=== PATIENT | female | born 1940 | race African-American/Black ===

== ENCOUNTER 2018-03-17 15:07 | Inpatient (IN) | payer MEDICARE ==
[~2018-03-17] VITALS: Ht 175.3 cm; Wt 99.0 kg
[2018-03-17] MEDS ORDERED: TRAMADOL 50MG TABLET PO ONE (17:15)
[2018-03-17] MEDS ORDERED: CLONIDINE 0.1MG TABLET PO ONE ×2 (17:15→19:30)
[2018-03-17] MEDS ORDERED: MORPHINE SULFATE 4 MG/ML CPJ (NOT FOR IM USE) IV ONE (19:30)
[2018-03-17] MEDS ORDERED: ONDANSETRON HCL 4MG/2ML INJ IV ONE (19:30)
[2018-03-17] MEDS ORDERED: HYDROCODONE/ACETAMINOPHEN 5/325MG TABLET PO PRN (20:15)
[2018-03-17] MEDS ORDERED: HYDROCODONE/ACETAMINOPHEN 10/325MG TABLET PO PRN (20:15)
[2018-03-17] MEDS ORDERED: DEXTROSE 50% WATER 50ML SYRINGE IV PRN (20:15)
[2018-03-17] MEDS ORDERED: ONDANSETRON HCL 4MG/2ML INJ IV PRN (20:15)
[2018-03-17 20:56] LABS: HEMOGLOBIN. 12.3 g/dL (12.0-16.0); MEAN CORPUSCULAR HEMOGLOBIN 28.9 pg (28.0-32.0); MEAN PLATELET VOLUME 8.2 fl (7.4-10.4); PLATELET 246 x1000/uL (130-400); RED BLOOD CELL COUNT 4.25 mill/uL (4.2-5.4); RED CELL DISTRIBUTION WIDTH 13.8 % (11.6-14.6)
[2018-03-17] MEDS: BLOOD SUGAR DIAGNOSTIC STRIP TEST SCH (21:00)
[2018-03-17 21:06] LABS: CHLORIDE 104 mEq/L (98-107)
[2018-03-17 21:12] LABS: PLATELET ESTIMATE NORMAL
[2018-03-18] VITALS (7 sets, daily range): BP systolic 122–179; BP diastolic 40–76
[2018-03-18] MEDS: AMLODIPINE 10MG TABLET PO SCH (02:28)
[2018-03-18] MEDS: INSULIN LISPRO 100 UNITS/ML SUBCUT SCH ×5 (02:30→22:19)
[2018-03-18] MEDS ORDERED: INSU100I28 SQ (06:27)
[2018-03-18] MEDS ORDERED: BIOT5000 PO (06:27)
[2018-03-18] MEDS ORDERED: ASPI-1159 PO (06:27)
[2018-03-18] MEDS ORDERED: FURO80TA3 PO (06:27)
[2018-03-18] MEDS ORDERED: CLON0.2T PO (06:27)
[2018-03-18] MEDS ORDERED: SPIR50TA5 PO (06:27)
[2018-03-18] MEDS ORDERED: CHOL200074 PO (06:27)
[2018-03-18] MEDS ORDERED: CALC0.253 PO (06:27)
[2018-03-18] MEDS ORDERED: METO-385 PO (06:27)
[2018-03-18] MEDS ORDERED: LATA2.5D2 OP (06:27)
[2018-03-18] MEDS ORDERED: SIMV40TA5 PO (06:27)
[2018-03-18] MEDS: BLOOD SUGAR DIAGNOSTIC STRIP TEST SCH ×4 (06:35→21:03)
[2018-03-18 07:05] LABS: BASOPHILS % 0.4 % (0.0-2.0); EOSINOPHILS % 0.3 % (0.0-5.0); HEMATOCRIT. 31.5 % (36.0-48.0); HEMOGLOBIN. 10.8 g/dL (12.0-16.0); LYMPHOCYTES % 12.5 % (20.0-50.0); MEAN CORPUSCULAR HEMOGLOBIN 29.5 pg (28.0-32.0); MEAN PLATELET VOLUME 8.3 fl (7.4-10.4); MONOCYTES % 11.3 % (2.0-8.0); NEUTROPHILS % 75.5 % (40.0-76.0); PLATELET 248 x1000/uL (130-400); RED BLOOD CELL COUNT 3.66 mill/uL (4.2-5.4); RED CELL DISTRIBUTION WIDTH 13.9 % (11.6-14.6)
[2018-03-18] MEDS: DEXT 5%/0.45% NACL 1000ML 1,000 ML IV SCH (22:18)
[2018-03-19] VITALS (8 sets, daily range): BP systolic 140–189; BP diastolic 74–105
[2018-03-19] MEDS: MORPHINE SULFATE 4 MG/ML CPJ (NOT FOR IM USE) IV PRN (04:38)
[2018-03-19] MEDS: CLONIDINE 0.1MG TABLET PO PRN ×2 (04:39→15:53)
[2018-03-19] MEDS: BLOOD SUGAR DIAGNOSTIC STRIP TEST SCH ×4 (06:58→21:59)
[2018-03-19] MEDS: INSULIN LISPRO 100 UNITS/ML SUBCUT SCH ×4 (07:44→22:01)
[2018-03-19] MEDS: AMLODIPINE 10MG TABLET PO SCH (08:41)
[2018-03-19] MEDS: DEXT 5%/0.45% NACL 1000ML 1,000 ML IV SCH (12:57)
[2018-03-19] MEDS ORDERED: METOPROLOL TARTRATE 25MG TABLET PO SCH (13:30)
[2018-03-19 16:29] LABS: BG BASE EXCESS -8.3 mmol/L (-2.0-2.0); BG CARBOXYHEMOGLOBIN 0.4 % (0.5-1.5); BG DEOXYHEMOGLOBIN 6.9 % (0.0-5.0); BG FRACTION INSPIRED OXYGEN 21; BG HCO3 ACT 13.5 mmol/L (22.0-26.0); BG METHEMOGLOBIN 0.2 % (0.0-1.5); BG OXYGEN SATURATION 93.1 % (92.0-98.5); BG OXYHEMOGLOBIN 92.5 % (94.0-97.0); BG PCO2 20.3 mmHg (35.0-45.0); BG PO2 66.2 mmHg (75.0-100.0); BG SAMPLE SITE RIGHT BRACHIAL; BG TOTAL HEMOGLOBIN 13.6 g/dL (12.0-18.0); BG VENT MODE ROOM AIR
[2018-03-19] MEDS: METOPROLOL TARTRATE 25MG TABLET PO SCH (21:00)
[2018-03-19] MEDS ORDERED: FUROSEMIDE 40MG/4ML VIAL IVP NR (22:30)
[2018-03-19 22:50] LABS: BG BASE EXCESS -3.7 mmol/L (-2.0-2.0); BG CARBOXYHEMOGLOBIN 0.4 % (0.5-1.5); BG DEOXYHEMOGLOBIN 4.2 % (0.0-5.0); BG FRACTION INSPIRED OXYGEN 28; BG HCO3 ACT 17.2 mmol/L (22.0-26.0); BG METHEMOGLOBIN 0.2 % (0.0-1.5); BG OXYGEN SATURATION 95.8 % (92.0-98.5); BG OXYHEMOGLOBIN 95.2 % (94.0-97.0); BG PCO2 21.5 mmHg (35.0-45.0); BG PH 7.521 (7.350-7.450); BG PO2 76.2 mmHg (75.0-100.0); BG SAMPLE SITE RIGHT RADIAL; BG TOTAL HEMOGLOBIN 12.5 g/dL (12.0-18.0); BG VENT MODE NASAL CANNULA
[2018-03-20] VITALS (60 sets, daily range): BP systolic 60–155; BP diastolic 27–95
[2018-03-20 00:15] LABS: HEMATOCRIT 37.1 % (36.0-48.0); HEMOGLOBIN 12.4 g/dL (12.0-16.0); MEAN CORPUSCULAR HEMOGLOBIN 28.7 pg (28.0-32.0); PLATELET 332 x1000/uL (130-400); RED BLOOD CELL COUNT 4.31 mill/uL (4.2-5.4); RED CELL DISTRIBUTION WIDTH 14.2 % (11.6-14.6)
[2018-03-20 00:30] LABS: AMMONIA 27 uMol/L (<32)
[2018-03-20 00:53] LABS: CHLORIDE 104 mEq/L (98-107)
[2018-03-20] MEDS ORDERED: DIGOXIN 500MCG/2ML AMP IV NR (01:00)
[2018-03-20 01:07] LABS: HDL CHOLESTEROL 47 mg/dL (40-59); LDL CHOLESTEROL 115 mg/dL (5-100)
[2018-03-20] MEDS ORDERED: INS NPH/REG HM 70-30 100 UNITS/ML 10ML VIAL (HUMULIN 70-30) SUBCUT NR (03:00)
[2018-03-20] MEDS: INSULIN LISPRO 100 UNITS/ML SUBCUT SCH ×4 (06:25→23:26)
[2018-03-20] MEDS: BLOOD SUGAR DIAGNOSTIC STRIP TEST SCH ×2 (06:25→17:30)
[2018-03-20 07:53] LABS: HEMATOCRIT. 35.5 % (36.0-48.0); HEMOGLOBIN. 11.9 g/dL (12.0-16.0); MEAN CORPUSCULAR VOLUME 86.3 fL (81.0-99.0); MEAN PLATELET VOLUME 8.7 fl (7.4-10.4); PLATELET 271 x1000/uL (130-400); RED BLOOD CELL COUNT 4.12 mill/uL (4.2-5.4)
[2018-03-20 08:00] LABS: AMMONIA 15 uMol/L (<32)
[2018-03-20] MEDS: METOPROLOL TARTRATE 25MG TABLET PO SCH (09:00)
[2018-03-20] MEDS: AMLODIPINE 10MG TABLET PO SCH (09:00)
[2018-03-20] MEDS ORDERED: LORAZEPAM 2MG/ML CPJ ONE (11:38)
[2018-03-20 13:33] LABS: BG BASE EXCESS -4.6 mmol/L (-2.0-2.0); BG CARBOXYHEMOGLOBIN 0.2 % (0.5-1.5); BG DEOXYHEMOGLOBIN 1.8 % (0.0-5.0); BG FRACTION INSPIRED OXYGEN 100; BG HCO3 ACT 17.3 mmol/L (22.0-26.0); BG METHEMOGLOBIN 0.4 % (0.0-1.5); BG OXYGEN SATURATION 98.2 % (92.0-98.5); BG OXYHEMOGLOBIN 97.6 % (94.0-97.0); BG PCO2 24.3 mmHg (35.0-45.0); BG PH 7.471 (7.350-7.450); BG PO2 126.6 mmHg (75.0-100.0); BG SAMPLE SITE RIGHT BRACHIAL; BG TIDAL VOLUME(mL) 500 mL; BG TOTAL HEMOGLOBIN 12.8 g/dL (12.0-18.0); BG VENT MODE VENT - A/C; BG VENT RATE 14 set
[2018-03-20] MEDS: PIPERACILLIN/TAZ 2.25G PREMIX 50 ML IV SCH ×2 (13:37→18:27)
[2018-03-20] MEDS ORDERED: SUCCINYLCHOLINE CHLORIDE 200MG/10ML IV ONE (13:39)
[2018-03-20] MEDS ORDERED: VECURONIUM BROMIDE 10 MG/VIAL IV ONE (13:39)
[2018-03-20] MEDS ORDERED: ETOMIDATE 2MG/ML 10ML VIAL IV ONE (13:39)
[2018-03-20] MEDS ORDERED: VANCOMYCIN 2,000 MG in DEXT 5% WATER 500 ML IV SCH (14:00)
[2018-03-20 16:22] LABS: BG CARBOXYHEMOGLOBIN 0.3 % (0.5-1.5); BG DEOXYHEMOGLOBIN 5.2 % (0.0-5.0); BG FRACTION INSPIRED OXYGEN 70; BG METHEMOGLOBIN 0.3 % (0.0-1.5); BG OXYGEN SATURATION 94.8 % (92.0-98.5); BG OXYHEMOGLOBIN 94.2 % (94.0-97.0); BG PCO2 21.6 mmHg (35.0-45.0); BG PH 7.459 (7.350-7.450); BG PO2 75.3 mmHg (75.0-100.0); BG SAMPLE SITE RIGHT RADIAL; BG TIDAL VOLUME(mL) 500 mL; BG TOTAL HEMOGLOBIN 11.9 g/dL (12.0-18.0); BG VENT MODE VENT - A/C; BG VENT RATE 12 set
[2018-03-20 16:23] LABS: PLATELET ESTIMATE NORMAL
[2018-03-20] MEDS: LEVETIRACETAM 250 MG in SODIUM CHLORIDE 0.9% 100 ML IV SCH ×2 (17:07→21:33)
[2018-03-20] MEDS: SODIUM CHLORIDE 0.9% 1,000 ML IV SCH (18:27)
[2018-03-20 19:13] LABS: HEMATOCRIT 36.2 % (36.0-48.0); HEMOGLOBIN 11.8 g/dL (12.0-16.0); MEAN CORPUSCULAR HEMOGLOBIN 28.5 pg (28.0-32.0); MEAN CORPUSCULAR VOLUME 87.5 fL (81.0-99.0); PLATELET 278 x1000/uL (130-400); RED BLOOD CELL COUNT 4.14 mill/uL (4.2-5.4); RED CELL DISTRIBUTION WIDTH 14.4 % (11.6-14.6)
[2018-03-20] MEDS ORDERED: LORAZEPAM 2MG/ML CPJ IV NR (19:15)
[2018-03-20 19:20] LABS: CHLORIDE 106 mEq/L (98-107)
[2018-03-20] MEDS: NOREPINEPHRINE 8 MG in DEXT 5% WATER 242 ML IV PRN (19:34)
[2018-03-20] MEDS: ACETAMINOPHEN 650MG SUPP PR PRN (20:26)
[2018-03-20] MEDS: IPRATROPIUM/ALBUTEROL 0.5-3(2.5)MG/3ML NEB HHN SCH (20:52)
[2018-03-20 21:50] LABS: BG BASE EXCESS -4.6 mmol/L (-2.0-2.0); BG CARBOXYHEMOGLOBIN 0.3 % (0.5-1.5); BG DEOXYHEMOGLOBIN 1.2 % (0.0-5.0); BG FRACTION INSPIRED OXYGEN 70; BG HCO3 ACT 14.3 mmol/L (22.0-26.0); BG METHEMOGLOBIN 0.3 % (0.0-1.5); BG OXYGEN SATURATION 98.8 % (92.0-98.5); BG OXYHEMOGLOBIN 98.2 % (94.0-97.0); BG PCO2 14.8 mmHg (35.0-45.0); BG PH 7.604 (7.350-7.450); BG PO2 200.9 mmHg (75.0-100.0); BG SAMPLE SITE RIGHT RADIAL; BG TOTAL HEMOGLOBIN 11.8 g/dL (12.0-18.0); BG VENT MODE VENT - PCV; BG VENT RATE 16 set
[2018-03-20 22:51] LABS: BG CARBOXYHEMOGLOBIN 0.3 % (0.5-1.5); BG DEOXYHEMOGLOBIN 1.9 % (0.0-5.0); BG FRACTION INSPIRED OXYGEN 70; BG HCO3 ACT 11.8 mmol/L (22.0-26.0); BG METHEMOGLOBIN 0.5 % (0.0-1.5); BG OXYGEN SATURATION 98.1 % (92.0-98.5); BG OXYHEMOGLOBIN 97.3 % (94.0-97.0); BG PCO2 15.5 mmHg (35.0-45.0); BG PH 7.498 (7.350-7.450); BG PO2 129.1 mmHg (75.0-100.0); BG SAMPLE SITE RIGHT RADIAL; BG TOTAL HEMOGLOBIN 11.4 g/dL (12.0-18.0); BG VENT MODE VENT - PCV; BG VENT RATE 12 set
[2018-03-21] VITALS (65 sets, daily range): BP systolic 92–163; BP diastolic 46–106
[2018-03-21] MEDS: PIPERACILLIN/TAZ 2.25G PREMIX 50 ML IV SCH ×4 (00:49→18:27)
[2018-03-21] MEDS: BLOOD SUGAR DIAGNOSTIC STRIP TEST SCH ×10 (00:54→19:14)
[2018-03-21] MEDS: NOREPINEPHRINE 8 MG in DEXT 5% WATER 242 ML IV PRN ×3 (01:00→22:46)
[2018-03-21] MEDS: IPRATROPIUM/ALBUTEROL 0.5-3(2.5)MG/3ML NEB HHN SCH ×4 (01:58→20:43)
[2018-03-21] MEDS: LORAZEPAM 2MG/ML CPJ IV PRN ×2 (04:08→11:05)
[2018-03-21 06:35] LABS: HEMATOCRIT. 32.7 % (36.0-48.0); HEMOGLOBIN. 10.5 g/dL (12.0-16.0); MEAN CORPUSCULAR HEMOGLOBIN 28.7 pg (28.0-32.0); MEAN CORPUSCULAR VOLUME 89.2 fL (81.0-99.0); MEAN PLATELET VOLUME 9.1 fl (7.4-10.4); PLATELET 251 x1000/uL (130-400); RED BLOOD CELL COUNT 3.66 mill/uL (4.2-5.4); RED CELL DISTRIBUTION WIDTH 14.5 % (11.6-14.6)
[2018-03-21] MEDS: INSULIN LISPRO 100 UNITS/ML SUBCUT SCH (06:43)
[2018-03-21 08:14] LABS: NUCLEATED RED BLOOD CELLS 2 /100 WBC; PLATELET ESTIMATE NORMAL
[2018-03-21 08:56] LABS: BG BASE EXCESS -10.4 mmol/L (-2.0-2.0); BG CARBOXYHEMOGLOBIN 0.2 % (0.5-1.5); BG DEOXYHEMOGLOBIN 1.3 % (0.0-5.0); BG FRACTION INSPIRED OXYGEN 70; BG HCO3 ACT 11.5 mmol/L (22.0-26.0); BG METHEMOGLOBIN 0.6 % (0.0-1.5); BG OXYGEN SATURATION 98.7 % (92.0-98.5); BG OXYHEMOGLOBIN 97.9 % (94.0-97.0); BG PH 7.448 (7.350-7.450); BG PO2 225.9 mmHg (75.0-100.0); BG SAMPLE SITE RIGHT RADIAL; BG TOTAL HEMOGLOBIN 10.6 g/dL (12.0-18.0); BG VENT MODE VENT - PCV; BG VENT RATE 12 set
[2018-03-21] MEDS: SODIUM CHLORIDE 0.9% 1,000 ML IV SCH (09:09)
[2018-03-21] MEDS: LEVETIRACETAM 250 MG in SODIUM CHLORIDE 0.9% 100 ML IV SCH ×2 (09:09→23:41)
[2018-03-21] MEDS ORDERED: SODIUM BICARBONATE 8.4% 1 MEQ/ML 50ML SYR IV SCH ×2 (09:30→11:00)
[2018-03-21] MEDS ORDERED: INSULIN REGULAR (DRIP) 100 UNITS in SODIUM CHLORIDE 0.9% 99 ML IV PRN (10:15)
[2018-03-21] MEDS ORDERED: DEXTROSE 50% WATER 50ML SYRINGE IV PRN ×2 (11:30)
[2018-03-21 11:58] LABS: CLARITY URINE TURBID (CLEAR); COLOR URINE YELLOW (YELLOW); KETONES URINE TRACE (NEGATIVE); LEUKOCYTE ESTERASE URINE 2+ (NEGATIVE); NITRITE URINE NEGATIVE (NEGATIVE); OCCULT BLOOD URINE 3+ (NEGATIVE); PROTEIN URINE 2+ (NEGATIVE); SPECIFIC GRAVITY URINE 1.019 (1.005-1.030); UROBILINOGEN URINE 0.2 E.U./dL (0.2-1.0)
[2018-03-21] MEDS: PANTOPRAZOLE SODIUM 40 MG/VIAL IV SCH (12:25)
[2018-03-21] MEDS: INSULIN REGULAR (DRIP) 100 UNITS in SODIUM CHLORIDE 0.9% 99 ML IV SCH ×2 (12:32→23:35)
[2018-03-21] MEDS ORDERED: FUROSEMIDE 40MG/4ML VIAL IVP SCH (13:15)
[2018-03-21 14:22] LABS: BG BASE EXCESS -4.7 mmol/L (-2.0-2.0); BG CARBOXYHEMOGLOBIN 0.2 % (0.5-1.5); BG DEOXYHEMOGLOBIN 2.3 % (0.0-5.0); BG HCO3 ACT 16.8 mmol/L (22.0-26.0); BG METHEMOGLOBIN 0.2 % (0.0-1.5); BG OXYGEN SATURATION 97.7 % (92.0-98.5); BG OXYHEMOGLOBIN 97.3 % (94.0-97.0); BG PH 7.501 (7.350-7.450); BG PIP 20 cmH2O; BG PO2 107.6 mmHg (75.0-100.0); BG SAMPLE SITE RIGHT RADIAL; BG TOTAL HEMOGLOBIN 11.4 g/dL (12.0-18.0); BG VENT MODE VENT - A/C; BG VENT RATE 12 set
[2018-03-22] VITALS (63 sets, daily range): BP systolic 101–158; BP diastolic 41–103
[2018-03-22] MEDS: SODIUM CHLORIDE 0.9% 1,000 ML IV SCH ×2 (00:14→20:54)
[2018-03-22] MEDS: PIPERACILLIN/TAZ 2.25G PREMIX 50 ML IV SCH ×2 (00:18→06:14)
[2018-03-22] MEDS: IPRATROPIUM/ALBUTEROL 0.5-3(2.5)MG/3ML NEB HHN SCH ×4 (00:41→19:40)
[2018-03-22] MEDS ORDERED: VERAPAMIL HCL 2.5 MG/1 ML 2ML VIAL IV NR ×2 (03:30→06:45)
[2018-03-22] MEDS: LORAZEPAM 2MG/ML CPJ IV PRN ×2 (03:51→22:10)
[2018-03-22] MEDS: MORPHINE SULFATE 4 MG/ML CPJ (NOT FOR IM USE) IV PRN (04:45)
[2018-03-22 06:23] LABS: HEMATOCRIT. 29.7 % (36.0-48.0); HEMOGLOBIN. 9.9 g/dL (12.0-16.0); MEAN CORPUSCULAR HEMOGLOBIN 28.9 pg (28.0-32.0); MEAN PLATELET VOLUME 9.2 fl (7.4-10.4); PLATELET 210 x1000/uL (130-400); RED BLOOD CELL COUNT 3.41 mill/uL (4.2-5.4); RED CELL DISTRIBUTION WIDTH 14.7 % (11.6-14.6)
[2018-03-22 07:13] LABS: CHLORIDE 111 mEq/L (98-107)
[2018-03-22 07:54] LABS: BG BASE EXCESS -4.5 mmol/L (-2.0-2.0); BG CARBOXYHEMOGLOBIN 0.3 % (0.5-1.5); BG DEOXYHEMOGLOBIN 2.3 % (0.0-5.0); BG FRACTION INSPIRED OXYGEN 50; BG HCO3 ACT 18.7 mmol/L (22.0-26.0); BG METHEMOGLOBIN 0.2 % (0.0-1.5); BG OXYGEN SATURATION 97.7 % (92.0-98.5); BG OXYHEMOGLOBIN 97.2 % (94.0-97.0); BG PCO2 28.1 mmHg (35.0-45.0); BG PH 7.442 (7.350-7.450); BG PO2 107.3 mmHg (75.0-100.0); BG SAMPLE SITE RIGHT BRACHIAL; BG TIDAL VOLUME(mL) 400 mL; BG TOTAL HEMOGLOBIN 9.5 g/dL (12.0-18.0); BG VENT MODE VENT - A/C; BG VENT RATE 12 set
[2018-03-22] MEDS: PANTOPRAZOLE SODIUM 40 MG/VIAL IV SCH (09:53)
[2018-03-22] MEDS: LEVETIRACETAM 250 MG in SODIUM CHLORIDE 0.9% 100 ML IV SCH (10:40)
[2018-03-22 10:43] LABS: PLATELET ESTIMATE NORMAL
[2018-03-22] MEDS ORDERED: DILTIAZEM HCL 5MG/ML 5ML VIAL IV NR (14:28)
[2018-03-22] MEDS: LEVOFLOXACIN 500MG PREMIX 100 ML IV SCH (16:22)
[2018-03-22] MEDS: BLOOD SUGAR DIAGNOSTIC STRIP TEST SCH ×5 (19:39→23:00)
[2018-03-22] MEDS: LEVETIRACETAM 500 MG in SODIUM CHLORIDE 0.9% 100 ML IV SCH (20:54)
[2018-03-22] MEDS ORDERED: VANCOMYCIN 1250MG in DEXTROSE 5% WATER 250ML IV NR (21:00)
[2018-03-22] MEDS ORDERED: DEXTROSE 50% WATER 50ML SYRINGE IV PRN (23:45)
[2018-03-23] VITALS (60 sets, daily range): BP systolic 61–145; BP diastolic 13–79
[2018-03-23] MEDS: BLOOD SUGAR DIAGNOSTIC STRIP TEST SCH ×6 (00:37→19:52)
[2018-03-23] MEDS ORDERED: NON FORMULARY PATIENT HOME MED EA XX SCH (01:00)
[2018-03-23] MEDS ORDERED: DIGOXIN 500MCG/2ML AMP IV NR (01:00)
[2018-03-23] MEDS ORDERED: DILTIAZEM HCL 5MG/ML 5ML VIAL IV NR (01:00)
[2018-03-23] MEDS: IPRATROPIUM/ALBUTEROL 0.5-3(2.5)MG/3ML NEB HHN SCH ×4 (01:40→19:44)
[2018-03-23] MEDS: LORAZEPAM 2MG/ML CPJ IV PRN (02:30)
[2018-03-23] MEDS: INSULIN LISPRO 100 UNITS/ML SUBCUT SCH ×6 (04:11→20:10)
[2018-03-23 05:43] LABS: CHLORIDE 111 mEq/L (98-107)
[2018-03-23 07:56] LABS: MEAN CORPUSCULAR HEMOGLOBIN 28.8 pg (28.0-32.0); MEAN PLATELET VOLUME 8.9 fl (7.4-10.4); PLATELET 240 x1000/uL (130-400); RED BLOOD CELL COUNT 3.12 mill/uL (4.2-5.4); RED CELL DISTRIBUTION WIDTH 15.1 % (11.6-14.6)
[2018-03-23 08:19] LABS: BG BASE EXCESS -13.4 mmol/L (-2.0-2.0); BG CARBOXYHEMOGLOBIN 0.3 % (0.5-1.5); BG DEOXYHEMOGLOBIN 5.3 % (0.0-5.0); BG FRACTION INSPIRED OXYGEN 50; BG HCO3 ACT 12.3 mmol/L (22.0-26.0); BG OXYGEN SATURATION 94.7 % (92.0-98.5); BG OXYHEMOGLOBIN 94.4 % (94.0-97.0); BG PCO2 28.2 mmHg (35.0-45.0); BG PH 7.259 (7.350-7.450); BG PO2 89.3 mmHg (75.0-100.0); BG SAMPLE SITE RIGHT RADIAL; BG TIDAL VOLUME(mL) 400 mL; BG TOTAL HEMOGLOBIN 9.7 g/dL (12.0-18.0); BG VENT MODE VENT - A/C; BG VENT RATE 12 set
[2018-03-23 08:26] LABS: NUCLEATED RED BLOOD CELLS 2 /100 WBC; PLATELET ESTIMATE NORMAL
[2018-03-23] MEDS: PANTOPRAZOLE SODIUM 40 MG/VIAL IV SCH (08:48)
[2018-03-23] MEDS: LEVETIRACETAM 500 MG in SODIUM CHLORIDE 0.9% 100 ML IV SCH ×2 (08:49→21:57)
[2018-03-23] MEDS ORDERED: SODIUM BICARBONATE 8.4% 1 MEQ/ML 50ML SYR IV SCH (09:30)
[2018-03-23] MEDS: MORPHINE SULFATE 4 MG/ML CPJ (NOT FOR IM USE) IV PRN (09:43)
[2018-03-23] MEDS: SODIUM BICARBONATE 100 MEQ in SODIUM CHLORIDE 0.45% 900 ML IV SCH ×2 (10:11→21:57)
[2018-03-23] MEDS ORDERED: LIDOCAINE HCL 1% 20ML VIAL (Pyxis) INJ ONE (11:03)
[2018-03-23] MEDS ORDERED: SODIUM POLYSTYRENE SULFONATE 15 G/60 ML BOT PO NR (11:45)
[2018-03-23] MEDS ORDERED: DIGOXIN 500MCG/2ML AMP IV SCH (18:45)
[2018-03-24] VITALS (46 sets, daily range): BP systolic 68–164; BP diastolic 16–82
[2018-03-24] MEDS: BLOOD SUGAR DIAGNOSTIC STRIP TEST SCH ×7 (00:07→23:24)
[2018-03-24] MEDS: INSULIN LISPRO 100 UNITS/ML SUBCUT SCH ×7 (00:10→23:24)
[2018-03-24] MEDS: IPRATROPIUM/ALBUTEROL 0.5-3(2.5)MG/3ML NEB HHN SCH ×4 (01:30→20:22)
[2018-03-24 05:49] LABS: HEMATOCRIT 25.7 % (36.0-48.0); HEMOGLOBIN 8.5 g/dL (12.0-16.0); MEAN CORPUSCULAR HEMOGLOBIN 28.8 pg (28.0-32.0); MEAN CORPUSCULAR VOLUME 87.4 fL (81.0-99.0); PLATELET 196 x1000/uL (130-400); RED BLOOD CELL COUNT 2.94 mill/uL (4.2-5.4); RED CELL DISTRIBUTION WIDTH 14.4 % (11.6-14.6)
[2018-03-24 05:58] LABS: CHLORIDE 102 mEq/L (98-107)
[2018-03-24 06:18] LABS: DIGOXIN 2.7 ng/mL (0.9-2.0)
[2018-03-24] MEDS: LEVETIRACETAM 500 MG in SODIUM CHLORIDE 0.9% 100 ML IV SCH ×2 (08:15→20:34)
[2018-03-24] MEDS: PANTOPRAZOLE SODIUM 40 MG/VIAL IV SCH (08:29)
[2018-03-24 08:32] LABS: BG BASE EXCESS -4.4 mmol/L (-2.0-2.0); BG CARBOXYHEMOGLOBIN 0.3 % (0.5-1.5); BG DEOXYHEMOGLOBIN 1.9 % (0.0-5.0); BG FRACTION INSPIRED OXYGEN 50; BG HCO3 ACT 18.4 mmol/L (22.0-26.0); BG METHEMOGLOBIN 0.4 % (0.0-1.5); BG OXYGEN SATURATION 98.1 % (92.0-98.5); BG OXYHEMOGLOBIN 97.4 % (94.0-97.0); BG PCO2 26.2 mmHg (35.0-45.0); BG PH 7.465 (7.350-7.450); BG PO2 130.4 mmHg (75.0-100.0); BG SAMPLE SITE RIGHT RADIAL; BG TIDAL VOLUME(mL) 400 mL; BG TOTAL HEMOGLOBIN 8.7 g/dL (12.0-18.0); BG VENT MODE VENT - A/C; BG VENT RATE 12 set
[2018-03-24] MEDS: SODIUM BICARBONATE 100 MEQ in SODIUM CHLORIDE 0.45% 900 ML IV SCH ×2 (09:32→20:34)
[2018-03-24] MEDS: LEVOFLOXACIN 500MG PREMIX 100 ML IV SCH (12:37)
[2018-03-24] MEDS ORDERED: FUROSEMIDE 100MG/10ML VIAL IVP NR (12:45)
[2018-03-24] MEDS: VERAPAMIL HCL 2.5 MG/1 ML 2ML VIAL IV SCH ×3 (16:51→23:23)
[2018-03-24] MEDS: INSULIN GLARGINE UD 100 UNITS/ML SYR SUBCUT SCH (20:45)
[2018-03-25] VITALS (39 sets, daily range): BP systolic 121–163; BP diastolic 56–94
[2018-03-25] MEDS: IPRATROPIUM/ALBUTEROL 0.5-3(2.5)MG/3ML NEB HHN SCH ×4 (02:11→20:51)
[2018-03-25] MEDS: BLOOD SUGAR DIAGNOSTIC STRIP TEST SCH ×6 (03:57→23:37)
[2018-03-25] MEDS: INSULIN LISPRO 100 UNITS/ML SUBCUT SCH ×6 (03:57→23:32)
[2018-03-25] MEDS: VERAPAMIL HCL 2.5 MG/1 ML 2ML VIAL IV SCH (05:36)
[2018-03-25 06:16] LABS: HEMATOCRIT. 26.5 % (36.0-48.0); HEMOGLOBIN. 8.7 g/dL (12.0-16.0); MEAN CORPUSCULAR VOLUME 88.5 fL (81.0-99.0); MEAN PLATELET VOLUME 9.9 fl (7.4-10.4); PLATELET 239 x1000/uL (130-400); RED CELL DISTRIBUTION WIDTH 14.8 % (11.6-14.6)
[2018-03-25] MEDS: SODIUM BICARBONATE 100 MEQ in SODIUM CHLORIDE 0.45% 900 ML IV SCH ×3 (06:27→20:57)
[2018-03-25 06:32] LABS: CHLORIDE 100 mEq/L (98-107)
[2018-03-25 06:56] LABS: PHOSPHORUS 6.1 mg/dL (2.5-4.9)
[2018-03-25 07:49] LABS: NUCLEATED RED BLOOD CELLS 2 /100 WBC
[2018-03-25 07:50] LABS: PLATELET ESTIMATE NORMAL
[2018-03-25] MEDS: LEVETIRACETAM 500 MG in SODIUM CHLORIDE 0.9% 100 ML IV SCH ×2 (09:19→20:56)
[2018-03-25] MEDS: PANTOPRAZOLE SODIUM 40 MG/VIAL IV SCH (09:19)
[2018-03-25] MEDS ORDERED: VERAPAMIL HCL 2.5 MG/1 ML 2ML VIAL IV PRN (09:45)
[2018-03-25] MEDS: INSULIN GLARGINE UD 100 UNITS/ML SYR SUBCUT SCH ×2 (10:09→20:59)
[2018-03-25] MEDS: DILTIAZEM HCL 30MG TABLET NG SCH ×3 (11:33→23:32)
[2018-03-25] MEDS: METOPROLOL TARTRATE 25MG TABLET PO SCH (20:56)
[2018-03-26] VITALS (56 sets, daily range): BP systolic 99–168; BP diastolic 29–113
[2018-03-26] MEDS: MORPHINE SULFATE 4 MG/ML CPJ (NOT FOR IM USE) IV PRN (01:03)
[2018-03-26] MEDS: IPRATROPIUM/ALBUTEROL 0.5-3(2.5)MG/3ML NEB HHN SCH ×3 (02:06→19:32)
[2018-03-26] MEDS: BLOOD SUGAR DIAGNOSTIC STRIP TEST SCH ×5 (04:00→20:23)
[2018-03-26] MEDS: DILTIAZEM HCL 30MG TABLET NG SCH ×4 (05:36→23:59)
[2018-03-26] MEDS: INSULIN LISPRO 100 UNITS/ML SUBCUT SCH ×5 (05:37→21:02)
[2018-03-26 05:51] LABS: HEMATOCRIT 24.7 % (36.0-48.0); HEMOGLOBIN 8.1 g/dL (12.0-16.0); MEAN CORPUSCULAR HEMOGLOBIN 28.9 pg (28.0-32.0); MEAN CORPUSCULAR VOLUME 88.2 fL (81.0-99.0); PLATELET 254 x1000/uL (130-400); RED CELL DISTRIBUTION WIDTH 14.8 % (11.6-14.6)
[2018-03-26] MEDS: PANTOPRAZOLE SODIUM 40 MG/VIAL IV SCH (08:11)
[2018-03-26] MEDS: ACETAMINOPHEN 650MG SUPP PR PRN (08:12)
[2018-03-26] MEDS: METOPROLOL TARTRATE 25MG TABLET PO SCH ×2 (08:13→20:58)
[2018-03-26 08:30] LABS: BG BASE EXCESS 4.7 mmol/L (-2.0-2.0); BG CARBOXYHEMOGLOBIN 0.3 % (0.5-1.5); BG DEOXYHEMOGLOBIN 2.5 % (0.0-5.0); BG FRACTION INSPIRED OXYGEN 40; BG METHEMOGLOBIN 0.3 % (0.0-1.5); BG OXYGEN SATURATION 97.5 % (92.0-98.5); BG OXYHEMOGLOBIN 96.9 % (94.0-97.0); BG PCO2 26.4 mmHg (35.0-45.0); BG PH 7.611 (7.350-7.450); BG PO2 103.2 mmHg (75.0-100.0); BG SAMPLE SITE RIGHT RADIAL; BG TIDAL VOLUME(mL) 400 mL; BG TOTAL HEMOGLOBIN 8.2 g/dL (12.0-18.0); BG VENT MODE VENT - A/C; BG VENT RATE 12 set
[2018-03-26] MEDS ORDERED: VANCOMYCIN 2,000 MG in DEXT 5% WATER 500 ML IV SCH (08:30)
[2018-03-26] MEDS: LEVETIRACETAM 500 MG in SODIUM CHLORIDE 0.9% 100 ML IV SCH ×2 (09:09→20:58)
[2018-03-26] MEDS: INSULIN GLARGINE UD 100 UNITS/ML SYR SUBCUT SCH ×2 (10:36→21:01)
[2018-03-26] MEDS: LEVOFLOXACIN 500MG PREMIX 100 ML IV SCH (12:18)
[2018-03-26] MEDS ORDERED: HEPARIN SODIUM 1,000 UNIT/1ML VIAL IV NR (16:10)
[2018-03-26] MEDS ORDERED: LORAZEPAM 2MG/ML CPJ IV PRN (17:00)
[2018-03-27] VITALS (44 sets, daily range): BP systolic 108–163; BP diastolic 50–73
[2018-03-27] MEDS: INSULIN LISPRO 100 UNITS/ML SUBCUT SCH ×6 (00:11→20:59)
[2018-03-27] MEDS: IPRATROPIUM/ALBUTEROL 0.5-3(2.5)MG/3ML NEB HHN SCH ×4 (01:53→20:10)
[2018-03-27] MEDS: BLOOD SUGAR DIAGNOSTIC STRIP TEST SCH ×6 (04:38→20:56)
[2018-03-27] MEDS: ACETAMINOPHEN 325MG TABLET PO PRN ×3 (05:04→20:52)
[2018-03-27] MEDS: DILTIAZEM HCL 30MG TABLET NG SCH ×3 (05:05→17:23)
[2018-03-27 06:04] LABS: HEMATOCRIT. 25.3 % (36.0-48.0); HEMOGLOBIN. 8.2 g/dL (12.0-16.0); MEAN CORPUSCULAR HEMOGLOBIN 28.6 pg (28.0-32.0); MEAN CORPUSCULAR VOLUME 88.6 fL (81.0-99.0); MEAN PLATELET VOLUME 10.2 fl (7.4-10.4); PLATELET 240 x1000/uL (130-400); RED BLOOD CELL COUNT 2.85 mill/uL (4.2-5.4); RED CELL DISTRIBUTION WIDTH 14.7 % (11.6-14.6)
[2018-03-27 07:28] LABS: NUCLEATED RED BLOOD CELLS 3 /100 WBC
[2018-03-27 07:29] LABS: PLATELET ESTIMATE NORMAL
[2018-03-27 07:32] LABS: BG CARBOXYHEMOGLOBIN 0.3 % (0.5-1.5); BG FRACTION INSPIRED OXYGEN 40; BG HCO3 ACT 23.4 mmol/L (22.0-26.0); BG METHEMOGLOBIN 0.3 % (0.0-1.5); BG OXYHEMOGLOBIN 93.4 % (94.0-97.0); BG PCO2 25.1 mmHg (35.0-45.0); BG PH 7.588 (7.350-7.450); BG PO2 68.9 mmHg (75.0-100.0); BG SAMPLE SITE RIGHT RADIAL; BG TIDAL VOLUME(mL) 400 mL; BG TOTAL HEMOGLOBIN 8.2 g/dL (12.0-18.0); BG VENT MODE VENT - A/C; BG VENT RATE 12 set
[2018-03-27] MEDS: LEVETIRACETAM 500 MG in SODIUM CHLORIDE 0.9% 100 ML IV SCH ×2 (08:28→20:51)
[2018-03-27] MEDS: METOPROLOL TARTRATE 25MG TABLET PO SCH ×2 (08:28→20:51)
[2018-03-27] MEDS: PANTOPRAZOLE SODIUM 40 MG/VIAL IV SCH (08:30)
[2018-03-27] MEDS: INSULIN GLARGINE UD 100 UNITS/ML SYR SUBCUT SCH ×2 (11:28→21:55)
[2018-03-27] MEDS: METRONIDAZOLE 500 MG PREMIX 100 ML IV SCH ×2 (14:11→21:54)
[2018-03-27] MEDS: CLONIDINE 0.1MG TABLET PO PRN (19:10)
[2018-03-27] MEDS: MORPHINE SULFATE 4 MG/ML CPJ (NOT FOR IM USE) IV PRN (21:52)
[2018-03-28] VITALS (58 sets, daily range): BP systolic 105–163; BP diastolic 51–75
[2018-03-28] MEDS: BLOOD SUGAR DIAGNOSTIC STRIP TEST SCH ×4 (00:53→12:16)
[2018-03-28] MEDS: INSULIN LISPRO 100 UNITS/ML SUBCUT SCH ×4 (00:55→11:54)
[2018-03-28] MEDS: DILTIAZEM HCL 30MG TABLET NG SCH ×3 (00:56→11:53)
[2018-03-28] MEDS: IPRATROPIUM/ALBUTEROL 0.5-3(2.5)MG/3ML NEB HHN SCH ×3 (01:28→14:09)
[2018-03-28] MEDS: MORPHINE SULFATE 4 MG/ML CPJ (NOT FOR IM USE) IV PRN (05:13)
[2018-03-28 05:15] LABS: HEMATOCRIT 24.4 % (36.0-48.0); HEMOGLOBIN 7.9 g/dL (12.0-16.0); MEAN CORPUSCULAR HEMOGLOBIN 28.5 pg (28.0-32.0); PLATELET 232 x1000/uL (130-400); RED BLOOD CELL COUNT 2.77 mill/uL (4.2-5.4); RED CELL DISTRIBUTION WIDTH 15.2 % (11.6-14.6)
[2018-03-28] MEDS: METRONIDAZOLE 500 MG PREMIX 100 ML IV SCH ×2 (05:15→14:03)
[2018-03-28] MEDS: PANTOPRAZOLE SODIUM 40 MG/VIAL IV SCH (08:29)
[2018-03-28] MEDS: METOPROLOL TARTRATE 25MG TABLET PO SCH (08:29)
[2018-03-28] MEDS: LEVETIRACETAM 500 MG in SODIUM CHLORIDE 0.9% 100 ML IV SCH (08:30)
[2018-03-28] MEDS: INSULIN GLARGINE UD 100 UNITS/ML SYR SUBCUT SCH (09:29)
[2018-03-28] MEDS ORDERED: MORPHINE SULFATE 4 MG/ML CPJ (NOT FOR IM USE) IV PRN (10:45)
[2018-03-28] MEDS: ACETAMINOPHEN 325MG TABLET PO PRN (11:53)
[2018-03-28] MEDS: LEVOFLOXACIN 500MG PREMIX 100 ML IV SCH (12:28)
[2018-03-28] MEDS: MORPHINE SULFATE 250 MG in DEXT 5% WATER 240 ML IV PRN ×2 (14:54→22:25)
[2018-03-28] MEDS ORDERED: LORAZEPAM 2MG/ML CPJ IV PRN ×2 (16:00→20:00)
[2018-03-28] MEDS ORDERED: IOHEXOL-350 100 ML BOTTLE ONE (17:21)
[2018-03-29] VITALS: BP 113/50
[2018-03-29 04:00] VITALS: BP 107/51
[2018-03-29] MEDS: MORPHINE SULFATE 250 MG in DEXT 5% WATER 240 ML IV PRN ×2 (04:54→11:26)
[2018-03-29 08:00] VITALS: BP 108/46
[2018-03-29 12:00] VITALS: BP_SYST 0
== END 2018-03-29 13:07 | disposition expired | DRG 562 ==
LOC: ER 15:07 → 6EST 19:29 → ENRESERV 22:02 → 8WST 03-19 17:05 → MICUSO 03-20 11:55 → MICUNO 03-25 17:10 → 6EST 03-28 23:55
PROVIDERS: ADMIT Internal Medicine; ATTEND Internal Medicine
PROC: 2W39X2Z Immobilization of Left Upper Extremity using Cast (ICD-10-PCS; 2018-03-19)
PROC: 5A1955Z Respiratory Ventilation, Greater than 96 Consecutive Hours (ICD-10-PCS; principal; 2018-03-20)
PROC: 5A12012 Performance of Cardiac Output, Single, Manual (ICD-10-PCS; 2018-03-20)
PROC: 0BH18EZ Insertion of Endotracheal Airway into Trachea, Via Natural or Artificial Opening Endoscopic (ICD-10-PCS; 2018-03-20)
PROC: 06HY33Z Insertion of Infusion Device into Lower Vein, Percutaneous Approach (ICD-10-PCS; 2018-03-20)
PROC: 02HV33Z Insertion of Infusion Device into Superior Vena Cava, Percutaneous Approach (ICD-10-PCS; 2018-03-23)
PROC: B548ZZA Ultrasonography of Superior Vena Cava, Guidance (ICD-10-PCS; 2018-03-23)
PROC: 5A1D70Z Performance of Urinary Filtration, Intermittent, Less than 6 Hours Per Day (ICD-10-PCS; 2018-03-23)
PROC: 5A1D70Z Performance of Urinary Filtration, Intermittent, Less than 6 Hours Per Day (ICD-10-PCS; 2018-03-26)
DX: S42.202A Unspecified fracture of upper end of left humerus, initial encounter for closed fracture (principal); A41.9 Sepsis, unspecified organism; E11.10 Type 2 diabetes mellitus with ketoacidosis without coma; I50.33 Acute on chronic diastolic (congestive) heart failure; J96.01 Acute respiratory failure with hypoxia; N17.0 Acute kidney failure with tubular necrosis; R65.21 Severe sepsis with septic shock; J18.1 Lobar pneumonia, unspecified organism; I21.4 Non-ST elevation (NSTEMI) myocardial infarction; I63.9 Cerebral infarction, unspecified; K72.00 Acute and subacute hepatic failure without coma; N18.4 Chronic kidney disease, stage 4 (severe); E87.3 Alkalosis; I13.0 Hypertensive heart and chronic kidney disease with heart failure and stage 1 through stage 4 chronic kidney disease, or unspecified chronic kidney disease; I47.1 Supraventricular tachycardia; I48.92 Unspecified atrial flutter; N39.0 Urinary tract infection, site not specified; G93.40 Encephalopathy, unspecified; G40.89 Other seizures; E87.1 Hypo-osmolality and hyponatremia; M62.82 Rhabdomyolysis; E87.2 Acidosis; Z66 Do not resuscitate; Z51.5 Encounter for palliative care; I48.0 Paroxysmal atrial fibrillation; M10.9 Gout, unspecified; E11.65 Type 2 diabetes mellitus with hyperglycemia; E11.21 Type 2 diabetes mellitus with diabetic nephropathy; R57.0 Cardiogenic shock; E78.5 Hyperlipidemia, unspecified; E11.22 Type 2 diabetes mellitus with diabetic chronic kidney disease; D63.8 Anemia in other chronic diseases classified elsewhere; W01.0XXA Fall on same level from slipping, tripping and stumbling without subsequent striking against object, initial encounter; E87.5 Hyperkalemia; Y93.89 Activity, other specified; Y92.512 Supermarket, store or market as the place of occurrence of the external cause; Y99.8 Other external cause status; I25.2 Old myocardial infarction; Z88.8 Allergy status to other drugs, medicaments and biological substances; Z88.6 Allergy status to analgesic agent; Z79.899 Other long term (current) drug therapy; Z79.82 Long term (current) use of aspirin
CPT/HCPCS: 36415; 36556; 36600; 71045; 73030; 73060; 73080; 73110; 76770; 76937; 78580; 80048; 80061; 80076; 80162; 80202; 82140; 82375; 82550; 82570; 82805; 82962; 83036; 83735; 84100; 84300; 84443; 84484; 84550; 85027; 87070; 87077; 87106; 87186; 93005; 93306; 93970; 94003; 94640; 99285; A6261; C1752; C1893; C9113; J0330; J1160; J1642; J1644; J1815; J1940; J1953; J1956; J2060; J2270; J2274; J2543; J3370; J3490; J7030; J7040; J7050; J7060; J7620; L3670; Q9967; A4315